=== PATIENT | female | born 1995 | race Caucasian/White ===

== ENCOUNTER 2018-02-04 17:52 | Emergency (ER) | payer BC ==
[2018-02-04] MEDS ORDERED: SODIUM CHLORIDE 1,000 ML IV STA (18:05)
--- NOTE | 2018-02-04 18:05 | PDOC ---
Rapid Medical Evaluation Time Seen by Provider: 02/04/18 18:02 Medical Evaluation: 02/04/18 18:03 I have performed a brief in-person evaluation of this patient. The patient presents with a chief complaint of: periumbilical pain x3-4 days Pertinent physical exam findings: periumbilical tenderness. +guarding I have ordered the following: labs, urine, CTAP The patient will proceed to the ED for further evaluation. Discharge Disposition - Diagnosis Abdominal pain - Referrals - Patient Instructions - Post Discharge Activity
[2018-02-04 18:07] VITALS: BMI 17.4
[2018-02-04] MEDS ORDERED: ACETAMINOPHEN 1000 MG/100 ML VIAL (NON FORMULARY) IVPB ONE (18:39)
[2018-02-04 19:04] LABS: BASO % 0.3 % (0-2.0); EOS % 0.2 % (0-4.5); HEMATOCRIT 39.6 % (32.4-45.2); HEMOGLOBIN 14.1 GM/dL (10.7-15.3); LYMPH % 20.6 % (8-40); MCH 32.9 pg (25.7-33.7); MCHC 35.5 g/dl (32.0-36.0); MEAN CELL VOLUME 92.8 fl (80-96); MEAN PLT VOLUME 7.9 fl (7.5-11.1); MONO % 11.2 % (3.8-10.2); NEUT % 67.7 % (42.8-82.8); PLATELET COUNT 250 K/MM3 (134-434); RBC 4.27 M/mm3 (3.60-5.2); RDW 12.7 % (11.6-15.6); WHITE BLOOD COUNT 7.8 K/mm3 (4.0-10.0)
[2018-02-04 19:05] LABS: URINE APPEARANCE CLOUDY; URINE BILIRUBIN NEGATIVE (<2.0 mg/dL); URINE COLOR AMBER; URINE GLUCOSE (UA) NEGATIVE (NEGATIVE); URINE KETONE 1+ (NEGATIVE); URINE LEUK ESTERASE NEGATIVE (NEGATIVE); URINE NITRITE NEGATIVE (NEGATIVE); URINE PROTEIN 2+ (NEGATIVE); URINE UROBILINOGEN 4.0 E.U/dl mg/dL (0.2-1.0)
--- NOTE | 2018-02-04 19:10 | PDOC ---
Attending Attestation - HPI HPI: This patient is a 22 year old female with no significant PMHx, who presents with 4 days of nausea and abdominal pain. Patient describes her abdominal pain as dull, achy, intermittent, located in suprapubic region, denies radiation, worse 30 minutes after eating, and states it hurts to move around. She also reports recent loss of appetite. She states that she is sexually active with one partner and does not use contraception. She states that she is currently menstruating. She denies any vomiting, fever, dysuria, burning on urination, or increased frequency. Denies any vaginal d/c. - Physicial Exam PE: GENERAL: Awake, alert, and fully oriented, in no acute distress HEAD: No signs of trauma EYES: PERRLA, EOMI, sclera anicteric, conjunctiva clear LUNGS: Breath sounds equal, clear to auscultation bilaterally. No wheezes, and no crackles HEART: Regular rate and rhythm, normal S1 and S2, no murmurs, rubs or gallops ABDOMEN: Soft, suprapubic tenderness to palpation, normoactive bowel sounds. No guarding, no rebound. No masses EXTREMITIES: Normal range of motion, no edema. No clubbing or cyanosis. No cords, erythema, or tenderness NEUROLOGICAL: Cranial nerves II through XII grossly intact. Normal speech, normal gait SKIN: Warm, Dry, normal turgor, no rashes or lesions noted. 02/04/18 20:25 <Shyla Stratton - Last Filed: 02/04/18 20:42> - Resident Resident Name: Delfin Clark - ED Attending Attestation I have performed the following: I have examined & evaluated the patient, The case was reviewed & discussed with the resident, I agree w/resident's findings & plan, Exceptions are as noted - Medical Decision Making No acute findings on CT. Patient initially refused pelvic exam, however, with the pelvic fluid on CT, she agreed to it (of note, her menses are in progress at present, so it may be related, as may the pain). She states she is sexually active, one partner, uses condoms. No recent vaginal discharge. No CMT, no adnexal tenderness. Cervicitis, PID, and TOA all unlikely based on exam findings. Will await culture results. Stable for MD home. <Sandhya Curry - Last Filed: 02/05/18 01:02>
[2018-02-04 19:11] LABS: EPI CELLS RARE /HPF (FEW); URINE MUCUS MANY
[2018-02-04 19:26] LABS: ALBUMIN 4.2 g/dl (3.4-5.0); ALK PHOS 65 U/L (45-117); ANION GAP 14 MMOL/L (8-16); BILIRUBIN,TOTAL 0.5 mg/dL (0.2-1); BLOOD UREA NITROGEN 12 mg/dL (7-18); CALCIUM 8.8 mg/dL (8.5-10.1); CHLORIDE 100 mmol/L (98-107); CO2 25 mmol/L (21-32); CREATININE 0.8 mg/dL (0.55-1.3); GLUCOSE,RANDOM 81 mg/dL (74-106); LIPASE 159 U/L (73-393); POTASSIUM 3.8 mmol/L (3.5-5.1); SGOT/AST 18 U/L (15-37); SGPT/ALT 18 U/L (13-61); SODIUM 139 mmol/L (136-145); TOT PROT 7.9 g/dl (6.4-8.2)
[2018-02-04] MEDS ORDERED: ACETAMINOPHEN INJECTION 100 ML IVPB ONE (19:32)
--- NOTE | 2018-02-04 19:51 | PDOC ---
History of Present Illness - General Chief Complaint: Pain Stated Complaint: STOMACH PAIN Time Seen by Provider: 02/04/18 18:02 History Source: Patient Exam Limitations: No Limitations - History of Present Illness Initial Comments: 02/04/18 19:41 22 yo female no sig pmh presents to the ED wit 4 days of nausea and abdominal pain. Pt states the pain is located in the in the supra pubic region, described as intermittent dull/achy, denies radiation of pain or back pain. Pain is made worse 30 min after eating. Admits to being sexually active with 1 partner and no hx of stds, uses condoms for contraception. Denies vaginal discharge, burning or increased frequency on urination, changes in bowel habits. Currently on period which is described as normal. Past History - Past Medical History Allergies/Adverse Reactions: Allergies Allergy/AdvReac Type Severity Reaction Status Date / Time No Known Allergies Allergy Verified 02/04/18 18:08 Home Medications: Ambulatory Orders NK [No Known Home Medication] 02/04/18 COPD: No - Suicide/Smoking/Psychosocial Hx Smoking History: Never smoked Have you smoked in the past 12 months: No Information on smoking cessation initiated: No Hx Alcohol Use: No Drug/Substance Use Hx: No Substance Use Type: None Review of Systems - Review of Systems Constitutional: No: Chills, Fever Respiratory: No: Shortness of Breath Cardiac (ROS): No: Chest Pain ABD/GI: Yes: Nausea, Other (suprpubic abdominal pain). No: Constipated, Diarrhea, Vomiting : No: Burning, Dysuria, Frequency Musculoskeletal: No: Back Pain *Physical Exam - Vital Signs Last Vital Signs Temp Pulse Resp BP Pulse Ox 98.9 F 113 H 18 99/64 100 02/04/18 18:03 02/04/18 18:03 02/04/18 18:03 02/04/18 18:03 02/04/18 18:03 - Physical Exam General Appearance: Yes: Nourished, Appropriately Dressed. No: Apparent Distress HEENT: positive: EOMI Respiratory/Chest: positive: Lungs Clear, Normal Breath Sounds Cardiovascular: positive: Regular Rhythm, S1, S2, Tachycardia. negative: Edema , JVD, Murmur Vascular Pulses: Dorsalis-Pedis (R): 4+, Doralis-Pedis (L): 4+ Female Pelvic Exam: positive: normal external exam (blood visualized (currently on period)), cervical os closed, normal adnexa, vaginal bleeding (on period). negative: CMT, discharge Gastrointestinal/Abdominal: positive: Normal Bowel Sounds, Flat, Soft, Tenderness (suprapubic ). negative: Distended, Guarding, Rebound Extremity: positive: Normal Capillary Refill Integumentary: positive: Normal Color, Dry, Warm Neurologic: positive: Fully Oriented, Alert, Normal Mood/Affect, Normal Response ED Treatment Course - LABORATORY CBC & Chemistry Diagram: 02/04/18 18:35 02/04/18 18:35 - ADDITIONAL ORDERS Additional order review: Laboratory Results 02/04/18 02/04/18 02/04/18 18:35 18:35 18:35 Sodium 139 Potassium 3.8 Chloride 100 Carbon Dioxide 25 Anion Gap 14 BUN 12 Creatinine 0.8 Creat Clearance w eGFR > 60 Random Glucose 81 Calcium 8.8 Total Bilirubin 0.5 AST 18 ALT 18 Alkaline Phosphatase 65 Total Protein 7.9 Albumin 4.2 Lipase 159 Urine Color Sejal Urine Appearance Cloudy Urine pH 5.0 Ur Specific [place] 1.030 Urine Protein 2+ H Urine Glucose (UA) Negative Urine Ketones 1+ H Urine Blood 2+ H Urine Nitrite Negative Urine Bilirubin Negative Urine Urobilinogen 4.0 e.u/dl H Ur Leukocyte Esterase Negative Urine WBC (Auto) 2 Urine RBC (Auto) 6 Ur Epithelial Cells Rare Urine Mucus Many Urine HCG, Qual Negative 02/04/18 18:35 RBC 4.27 MCV 92.8 MCHC 35.5 RDW 12.7 MPV 7.9 Neutrophils % 67.7 Lymphocytes % 20.6 Monocytes % 11.2 H Eosinophils % 0.2 Basophils % 0.3 - Medications Given in the ED: ED Medications Discontinued Medications Generic Name Dose Route Start Last Admin Trade Name Freq PRN Reason Stop Dose Admin Sodium Chloride 1,000 mls @ 1,000 mls/hr 02/04/18 18:05 02/04/18 18:57 Normal Saline - IV 02/04/18 19:04 1,000 mls/hr ASDIR STA Administration Medical Decision Making - Medical Decision Making 02/04/18 23:15 22 yo female no sig pmh presents to ed with 4 days of suprapubic abdominal pain. Pt admits to 1 sexual partner and uses condoms for protection. Denies vaginal discharge or burning/itching. PE: Abdomen tender suprapubic. No guarding, rebound. No CVA Vaginal exam: No CMT or adnexal tenderness. Blood noted, pt on period. DDX: PID, Appendicitis, diverticulitis, ovarian cyst/torsion Abdominal CT PO contrast shows fecal retention and trace amount of fluid within the cul-de-sac but no evidence of appendicitis or other acute abdominal findings. GC/Chlam urine amp sent Unlikely ovarian torsion due to negative pelvic exam, quality and location of pain Discussed potential of prophylacticly treating for STD/PID, patient decided to wait for a call regarding results of GC/Chlam Pt going to school in [place] and would like to have [facility]GER follow up there. Does not require [facility] follow up D/C home with PCP follow up and strict return precautions for appendicitis, ovarian torsion *DC/Admit/Observation/Transfer Diagnosis at time of Disposition: Abdominal pain Qualifiers: Abdominal location: periumbilical Qualified Code(s): R10.33 - Periumbilical pain - Discharge Dispostion Disposition: HOME Condition at time of disposition: Stable Decision to Admit order: No - Referrals Referrals: Aren Cool MD [Staff Physician] - - Patient Instructions Printed Discharge Instructions: DI for Abdominal Pain-Adult Additional Instructions: Please make appointment with an WELLNESS MANAGER doctor back in your home City of [place] within the next 1 week. Follow up with your Primary Care Doctor, Dr. Cool within the next 2 days to discuss your visit. Please return to the emergency room for new or worsening symptoms including but not limited to: high fevers, severe abdominal pain and cramping, vaginal discharge. Please take over the counter Tylenol and Motrin every 4-6 hours alternating for abdominal pain. Thank you - Post Discharge Activity
[2018-02-04 20:00] VITALS: BP 105/69; PULSE 95; TEMP 99.3
--- NOTE | 2018-02-06 10:15 | EKG ---
Test Reason : Blood Pressure : / mmHG Vent. Rate : 092 BPM Atrial Rate : 092 BPM P-R Int : 142 ms QRS Dur : 074 ms QT Int : 378 ms P-R-T Axes : 059 -71 049 degrees QTc Int : 467 ms NORMAL SINUS RHYTHM LEFT AXIS DEVIATION SEPTAL INFARCT , AGE UNDETERMINED POOR R WAVE PROGRESSION ABNORMAL ECG NO PREVIOUS ECGS AVAILABLE Confirmed by CAMILO LOPEZ MD ([id number]) on 02/06/2018 10:14:42 AM Referred By: Confirmed By:CAMILO LOPEZ MD
== END 2018-02-04 23:36 | disposition home or self-care (01) ==
LOC: JER 17:52
PROC: 3E0337Z Introduction of Electrolytic and Water Balance Substance into Peripheral Vein, Percutaneous Approach (ICD-10-PCS; principal; 2018-02-04)
DX: R10.33 Periumbilical pain (principal)
CPT/HCPCS: 36415; 74177-TC; 80053; 81003; 81015; 83690; 84703; 85025; 87086; 87491; 87591; 93005; 93010; 99283-25; J7030